=== PATIENT | female | born 1955 | race Caucasian/White ===

== ENCOUNTER 2017-07-12 07:54 | Emergency (ER) | payer BC ==
[2017-07-12 08:08] VITALS: BP 171/106
[2017-07-12] MEDS ORDERED: methylPREDNISolone 125 MG* 2 ML VIAL IM ONE (08:25)
--- NOTE | 2017-07-12 08:27 | UC ---
Hip/Pelvis Pain - HPI Summary HPI Summary: pt fell a couple of times in past few months onto her left buttock. pain comes and goes and tylenol usually works. today she has excrutiating pain in her left buttocks radiating down her leg. she has had sciatic pain before but nothing this bad. tylenol not effective today - History Of Current Complaint Chief Complaint: UCLowerExtremity Stated Complaint: LEG COMPLAINT Time Seen by Provider: 07/12/17 08:16 Hx Obtained From: Patient Hx Last Menstrual Period: n/a Onset/Duration: Sudden Onset Severity Initially: Moderate Severity Currently: Severe Pain Scale Used: 0-10 Numeric - 7/10 Character Of Pain: Sharp Aggravating Factor(s): Movement Alleviating Factor(s): Nothing Associated Signs And Symptoms: Positive: Other - radiation down left leg - Risk Factors Septic Arthritis Risk Factor: Negative - Allergies/Home Medications Allergies/Adverse Reactions: Allergies Allergy/AdvReac Type Severity Reaction Status Date / Time Azithromycin [From Zithromax] Allergy SEVERE Verified 07/12/17 07:59 ITCHY RASH Hydrocodone Allergy SEVERE Verified 07/12/17 07:59 ITCHY RASH Ibuprofen Allergy ITCHY RASH Verified 07/12/17 07:59 Penicillins Allergy ITCHY RASH Verified 07/12/17 07:59 Propoxyphene [From Darvon] Allergy ITCHY RASH Verified 07/12/17 07:59 Tapentadol [From Nucynta] Allergy See Comment Verified 07/12/17 07:59 OXYCODONE/PERCOCET Allergy SEVERE Uncoded 07/12/17 07:59 ITCH DIFFICULTY SWALLOWING Home Medications: Home Medications Methylphenidate TAB* [Ritalin TAB*] 20 mg PO TID 07/12/17 [History Confirmed 10/24] PMH/Surg Hx/FS Hx/Imm Hx Previously Healthy: Yes - Surgical History Surgical History: Yes Surgery Procedure, Year, and Place: 1967 2 SURGERIES ON RIGHT ELBOW FROM A FRACTURE. 2000 AND 2002 2 MORE SURGERIES ON RIGHT ELBOW,. BILATERAL KNEES ARTHROSCOPIC SURGERY WITH IN THE LAST 6 YEARS, [facility]. mini tight rope procedure. - Family History Known Family History: Positive: Cardiac Disease, Hypertension - Social History Alcohol Use: Occasionally Substance Use Type: Marijuana Substance Use Comment - Amount & Last Used: occasional use. Smoking Status (MU): Former Smoker When Did the Patient Quit Smoking/Using Tobacco: 40 years ago - Immunization History Most Recent Influenza Vaccination: 2016 Review of Systems Skin: Negative Eyes: Negative ENT: Negative Respiratory: Negative Cardiovascular: Negative Gastrointestinal: Negative Genitourinary: Negative Neurovascular: Negative Musculoskeletal: Arthralgia, Myalgia, Other: - left buttock/hip pain - with radiation down left leg Is Patient Immunocompromised?: No All Other Systems Reviewed And Are Negative: Yes Physical Exam Triage Information Reviewed: Yes Appearance: Well-Appearing, Well-Nourished, Pain Distress Vital Signs: Initial Vital Signs Temp 97.5 F 07/12/17 08:01 Pulse 75 07/12/17 08:01 Resp 20 07/12/17 08:01 BP 171/106 07/12/17 08:01 Vital Signs Reviewed: Yes Eye Exam: Normal Eyes: Positive: Conjunctiva Clear ENT Exam: Normal Neck: Positive: Supple Respiratory Exam: Normal Respiratory: Positive: Chest non-tender, Lungs clear Cardiovascular Exam: Normal Abdominal Exam: Normal Abdomen Description: Positive: Nontender Bowel Sounds: Positive: Present Musculoskeletal Exam: Normal Musculoskeletal: Positive: Strength Intact, ROM Limited @ - left side tender to touch Neurological: Positive: Alert Psychological: Positive: Normal Response To Family, Age Appropriate Behavior Skin Exam: Normal Hip Injury Course/Dx - Course Course Of Treatment: solumedrol IM x 1 now - will stay here for 20 min for observation - discussed use and common side effects of med. xrays - hip/pelvic negative at this time. continue tylenol po 650 po every 4 hours. take medrol dose pack as tolerated - start tomorrow am 07/13/17. rechecked bp 160/90 left arm - elevated d/t severe sciatic pain at this time - no hx HTN and pain now much less than it was when she came in 11/17. xray of left hip/pelvis re by pt d /t fall x 2 this past year. f/u PCP tomorrow she has an appt - Differential Dx/Diagnosis Provider Diagnoses: sciatica Discharge - Discharge Plan Condition: Stable Disposition: HOME Prescriptions: Methylprednisolone [Medrol Dosepak 4 MG*] 4 mg PO .SEE CHALO INSTRUCTION 5 Days # 1 tab Patient Education Materials: Sciatica (ED) Referrals: Shiva Callahan MD [Primary Care Provider] - 1 Day
--- NOTE | 2017-07-12 09:27 | RAD ---
INDICATION: Pelvic and left hip pain COMPARISON: None TECHNIQUE: 3 views of the left hip were obtained. FINDINGS: The visualized bones of the left hip are well-corticated and properly aligned. The joint spaces are normal. There is no radiographic evidence of acute fracture or dislocation. IMPRESSION: Normal radiograph of the left hip. If the patient's symptoms persist follow-up imaging is recommended.
== END 2017-07-12 10:10 | disposition home or self-care (01) ==
LOC: UCCORT 07:54
DX: M54.32 Sciatica, left side (principal); Z88.6 Allergy status to analgesic agent; Z88.1 Allergy status to other antibiotic agents; Z88.5 Allergy status to narcotic agent; Z88.0 Allergy status to penicillin; F12.90 Cannabis use, unspecified, uncomplicated; Z87.891 Personal history of nicotine dependence
CPT/HCPCS: 99212; G0463; J2930

== ENCOUNTER 2017-08-10 07:16 | Emergency (ER) | payer BC ==
[2017-08-10 07:43] VITALS: BP 140/97
[2017-08-10] MEDS ORDERED: methylPREDNISolone 125 MG* 2 ML VIAL IM ONE (08:10)
--- NOTE | 2017-08-10 08:15 | UC ---
Lower Extremity/Ankle HPI - HPI Summary HPI Summary: Pt presents with discomfort in left buttock with radiation lateral aspect of leg to knee. Pt denies weakness. Pt states had a fall in the summer x 2 and landed on her left buttock. Pt states did not have significant pain following fall. In early July, pt was seen for similar sx. Pt states she was evaluated in [place] and given solumedrol shot with pred RX x 5 days. Pt states significantly helped discomfort. Pt states she has been going to the gym x 3 weeks and the discomfort is starting to flare Pt states she finds certain positions that irritate the pain. Pt states pain also increases when she pushes one spot in buttock. No leg weakness. No changes to bowel/bladder. Pt states she contacted her orthopedic group in [place] ([facility]) and is awaiting and assignment. pt states she take Aleve with temp relief. Pt also with Rx medical marijuana for neuropathy in right hand and this helps pain. Pt with slight elevation BP - current diagnosis of HTN- on meds Pt's medications reviewed this visit. - History of Current Complaint Chief Complaint: UCLowerExtremity Stated Complaint: L LEG PAIN Time Seen by Provider: 08/10/17 07:50 Hx Last Menstrual Period: n/a ?: No Onset/Duration: Gradual Onset Severity Initially: Mild Severity Currently: Moderate Pain Scale Used: 0-10 Numeric Aggravating Factor(s): Other - palpation, walking Alleviating Factor(s): Rest, OTC Meds Able to Bear Weight: Yes - Allergies/Home Medications Allergies/Adverse Reactions: Allergies Allergy/AdvReac Type Severity Reaction Status Date / Time Azithromycin [From Zithromax] Allergy SEVERE Verified 08/10/17 07:29 ITCHY RASH Hydrocodone Allergy SEVERE Verified 08/10/17 07:29 ITCHY RASH Ibuprofen Allergy ITCHY RASH Verified 08/10/17 07:29 Penicillins Allergy ITCHY RASH Verified 08/10/17 07:29 Propoxyphene [From Darvon] Allergy ITCHY RASH Verified 08/10/17 07:29 Tapentadol [From Nucynta] Allergy See Comment Verified 08/10/17 07:29 OXYCODONE/PERCOCET Allergy SEVERE Uncoded 08/10/17 07:29 ITCH DIFFICULTY SWALLOWING Home Medications: Home Medications Atorvastatin* [Lipitor 10 MG*] 08/10/17 [History] Naproxen TAB* [Naprosyn 250 mg TAB*] 250 mg PO Q8H PRN 08/10/17 [History Confirmed 08/10/17] PMH/Surg Hx/FS Hx/Imm Hx Endocrine History: Diabetes, Dyslipidemia Cardiovascular History: Hypertension - Surgical History Surgical History: Yes Surgery Procedure, Year, and Place: 1967 2 SURGERIES ON RIGHT ELBOW FROM A FRACTURE. 2000 AND 2002 2 MORE SURGERIES ON RIGHT ELBOW,. BILATERAL KNEES ARTHROSCOPIC SURGERY WITH IN THE LAST 6 YEARS, [facility]. mini tight rope procedure. - Family History Known Family History: Positive: Cardiac Disease, Hypertension - Social History Occupation: Disabled Lives: Alone Alcohol Use: Occasionally Substance Use Type: Marijuana Substance Use Comment - Amount & Last Used: occasional use. Smoking Status (MU): Former Smoker When Did the Patient Quit Smoking/Using Tobacco: 40 years ago - Immunization History Most Recent Influenza Vaccination: 2015 Review of Systems Constitutional: Negative Skin: Negative Neurovascular: Other - intermittnet paresthesia left LE Musculoskeletal: Other: - pain left buttock All Other Systems Reviewed And Are Negative: Yes Physical Exam Triage Information Reviewed: Yes Appearance: Well-Appearing, Well-Nourished, Pain Distress - mild discomfort with ambulation Vital Signs: Initial Vital Signs Temp 97.9 F 08/10/17 07:31 Pulse 75 08/10/17 07:31 Resp 18 08/10/17 07:31 BP 140/97 08/10/17 07:31 Pulse Ox 96 08/10/17 07:31 Eye Exam: Normal Eyes: Positive: Conjunctiva Clear ENT: Positive: Hearing grossly normal Neck exam: Normal Neck: Positive: Supple, Nontender Respiratory Exam: Normal Respiratory: Positive: Chest non-tender, Lungs clear, Normal breath sounds, No respiratory distress, No accessory muscle use Cardiovascular Exam: Normal Cardiovascular: Positive: RRR, No Murmur, Pulses Normal Musculoskeletal: Positive: Other: - No pain c/t/l/s Full AROM c spine + TTP left buttock - point tenderness + SLE b/l + flex/ext knee, ankle + abduct, adduct hips Neurological Exam: Normal Neurological: Positive: Other: - 2+ patellar b/l no clonus + gross sensation equal throughotu Psychological Exam: Normal Skin Exam: Normal Lower Extremity Course/Dx - Course Course Of Treatment: Pt with left buttock pain with radiation to left lateral leg. + point tenderness. no spinous process pain. suspect pain related to sciatica. Will give IM solumedrol. apap. heat. stretch. pt taking aleve - d /w pt regarding precautions - with food. Pt to f/u with her ortho in [place]. PT referral - Differential Dx/Diagnosis Provider Diagnoses: sciatica Discharge - Discharge Plan Condition: Stable Disposition: HOME Prescriptions: predniSONE TAB* [Deltasone TAB*] 40 mg PO DAILY #12 tab Patient Education Materials: Sciatica (ED) Referrals: Shiva Callahan MD [Primary Care Provider] - Additional Instructions: - Take prednisone once daily with food as prescribed until gone. Do not take at the same time as Aleve - Okay to take Alieve as prescribed - take with food - Okay to take Tylenol every 6 hours for pain - Apply heat to your right buttock 2-3 times a day - once warm, slow gentle stretching exercises - You have been given a referral for physical therapy - Follow-up with your emergency management specialist in [place] or your primary care provider - If you develop difficulty controlling your bowel or bladder or leg weakness, you should go to the emergency department for further evaluation
== END 2017-08-10 08:33 | disposition home or self-care (01) ==
LOC: UCEAST 07:16
DX: M54.32 Sciatica, left side (principal); E11.9 Type 2 diabetes mellitus without complications; E78.5 Hyperlipidemia, unspecified; I10 Essential (primary) hypertension; Z88.6 Allergy status to analgesic agent; Z88.1 Allergy status to other antibiotic agents; Z88.5 Allergy status to narcotic agent; Z88.0 Allergy status to penicillin; F12.90 Cannabis use, unspecified, uncomplicated; Z87.891 Personal history of nicotine dependence
CPT/HCPCS: 96372; 99212; G0463; J2930

== ENCOUNTER 2018-05-14 08:56 | Emergency (ER) | payer BC ==
--- NOTE | 2018-05-14 10:13 | UC ---
Epistaxis Nasal HPI - HPI Summary HPI Summary: 63 y/o female presents to the urgent care c/o Pt states had 6 nosebleeds over the summer - had nose cauterized 2 weeks ago. Pt states bleed started last night slowly, then patient blew nose and it worsened. Pt states bleeding worse when bending over. - History of Current Complaint Chief Complaint: UCWounds Stated Complaint: NOSE BLEED Time Seen by Provider: 05/14/18 10:12 Hx Last Menstrual Period: n/a Pain Intensity: 0 - Allergies/Home Medications Allergies/Adverse Reactions: Allergies Allergy/AdvReac Type Severity Reaction Status Date / Time azithromycin Allergy Rash Verified 05/14/18 09:17 hydrocodone Allergy Rash Verified 05/14/18 09:17 ibuprofen Allergy Itching Verified 05/14/18 09:19 Penicillins Allergy Itching Verified 05/14/18 09:19 propoxyphene Allergy Rash Verified 05/14/18 09:20 tapentadol Allergy See Comment Verified 05/14/18 09:19 OXYCODONE/PERCOCET Allergy SEVERE Uncoded 05/14/18 09:03 ITCH DIFFICULTY SWALLOWING Home Medications: Home Medications Naproxen Sodium [Aleve] 440 mg PO ONCE 05/14/18 [History Confirmed 05/14/18] Triamterene/HCTZ 37.5-25 MG* [Dyazide CAP*] 1 cap PO DAILY 05/14/18 [History Confirmed 05/14/18] PMH/Surg Hx/FS Hx/Imm Hx - Surgical History Surgical History: Yes Surgery Procedure, Year, and Place: 1967 2 SURGERIES ON RIGHT ELBOW FROM A FRACTURE. 2000 AND 2002 2 MORE SURGERIES ON RIGHT ELBOW,. BILATERAL KNEES ARTHROSCOPIC SURGERY WITH IN THE LAST 6 YEARS, [facility]. mini tight rope procedure. 2016 R thumb - Family History Known Family History: Positive: Cardiac Disease, Hypertension - Social History Alcohol Use: Rare Substance Use Type: Marijuana Substance Use Comment - Amount & Last Used: medical Smoking Status (MU): Former Smoker When Did the Patient Quit Smoking/Using Tobacco: 40 years ago - Immunization History Most Recent Influenza Vaccination: 2016 Physical Exam Vital Signs: Initial Vital Signs Temp 98 F 05/14/18 09:06 Pulse 69 05/14/18 09:06 Resp 16 05/14/18 09:06 BP 136/89 05/14/18 09:06 Pulse Ox 100 05/14/18 09:06 Epistaxis Nasal Course/Dx - Course Course Of Treatment: Pt's b/l nostrils w/ remnants of dry blood and no septal hematoma observed or posterior nose bleeding observed on examination. Pt's nasal mucosa cleaned w/ sterile water and a discrete abrasion observed on the lateral side of Rt nostril. Bacitracin oint applied on Rt nostril to lubricate the area. Pt Rx same medication. Mother and Pt educated on different causes of epistaxis. Advised to apply vaseline, use a humidifier at night time. Strongly advised to f/u w/ DR Blake ENT referral for further evaluation on her Recurrent Nose Bleeding. Pt explained D/C instructions. Pt understood and agreed w/ plan of care. Pt left the clinic hemodynamically stable, A&OX3 - Differential Dx/Diagnosis Differential Diagnosis/HQI/PQRI: Epistaxis, Polyps, Trauma Provider Diagnoses: 1- left nostril epistaxis Discharge - Sign-Out/Discharge Documenting (check all that apply): Patient Departure - D/c home All imaging exams completed and their final reports reviewed: No Studies - Discharge Plan Condition: Stable Disposition: HOME Patient Education Materials: Nosebleed (ED), Low-Sodium Diet (ED) Referrals: Shiva Callahan MD [Primary Care Provider] - 1 Day Weston Blake MD [Medical Doctor] - 1 Day Raleigh Jara MD [Medical Doctor] - 1 Day Additional Instructions: 2-Please apply Wesley Synephrine nasal spray BID x 7 days prn to stop epistaxis. Avoid taking Advil. or strenuous exercise. 2- Please F/u w? ENT Dr Blake or Hodan Jara for furhte management on epistaxis. 3- Aply Bacitracin oint BID x 7 days to improv lubrication and avoid infection 4-If symptoms worsen please go return to immediately to the ER for further management. 5-Your BP is elevated today. please decrease salt in your diet, monitor BP and if it continues to be elevated please f/u with your PCP for further management - Billing Disposition and Condition Condition: STABLE Disposition: Home
[2018-05-14] MEDS ORDERED: Phenylephrine 0.5% NASAL* BTL LEFT NARE ONE (10:46)
[2018-05-14 11:19] VITALS: BP 155/96
== END 2018-05-14 11:25 | disposition home or self-care (01) ==
LOC: UCEAST 08:56
DX: R04.0 Epistaxis (principal); Z88.1 Allergy status to other antibiotic agents; Z88.0 Allergy status to penicillin; Z88.5 Allergy status to narcotic agent; Z87.891 Personal history of nicotine dependence
CPT/HCPCS: 99212; A9270-GY; G0463